=== PATIENT | female | born 1970 | race Caucasian/White ===

== ENCOUNTER 2021-08-12 13:06 | Outpatient (RCR) | payer MEDICARE | END 2021-08-16 | LOC: M PT 13:06 | PROVIDERS: ATTEND Family Medicine | DX: L03.116 Cellulitis of left lower limb (principal) ==

== ENCOUNTER 2021-09-12 14:43 | Outpatient (RCR) | payer MEDICARE | END 2021-09-15 | LOC: M PT 14:43 | PROVIDERS: ATTEND Family Medicine | DX: L03.116 Cellulitis of left lower limb (principal) ==

== ENCOUNTER 2021-10-07 13:27 | Outpatient (RCR) | payer MEDICARE | END 2021-10-16 | LOC: M PT 13:27 | PROVIDERS: ATTEND Family Medicine | DX: L03.116 Cellulitis of left lower limb (principal) ==

== ENCOUNTER 2021-11-04 11:46 | Outpatient (RCR) | payer MEDICARE | END 2021-11-16 | LOC: M PT 11:46 | PROVIDERS: ATTEND Family Medicine | DX: L03.116 Cellulitis of left lower limb (principal) ==

== ENCOUNTER 2022-01-03 14:02 | Outpatient (RCR) | payer MEDICARE | END 2022-01-16 | LOC: M PT 14:02 | PROVIDERS: ATTEND Family Medicine | DX: L03.116 Cellulitis of left lower limb (principal) ==

== ENCOUNTER 2022-07-14 13:38 | Outpatient (RCR) | payer MEDICARE, MEDICAID | END 2022-07-16 | LOC: M PT 13:38 | PROVIDERS: ATTEND Nurse Practitioner Family | DX: I89.0 Lymphedema, not elsewhere classified (principal) ==

== ENCOUNTER → 2022-08-16 | Outpatient (RCR) | payer MEDICARE, MEDICAID | LOC: M PT 07-19 14:50 | PROVIDERS: ATTEND Nurse Practitioner Family | DX: I89.0 Lymphedema, not elsewhere classified (principal) ==

== ENCOUNTER 2022-08-20 22:37 | Emergency (ER) | payer MEDICARE, MEDICAID ==
[~2022-08-20] VITALS: Ht 157.5 cm; Wt 113.6 kg
[2022-08-20 22:57] VITALS: BP 141/71
== END 2022-08-21 04:28 | disposition home or self-care (01) ==
LOC: EDBD 22:37 → M ED 22:37
DX: S40.012A Contusion of left shoulder, initial encounter (principal); S70.02XA Contusion of left hip, initial encounter; W01.0XXA Fall on same level from slipping, tripping and stumbling without subsequent striking against object, initial encounter; Y92.009 Unspecified place in unspecified non-institutional (private) residence as the place of occurrence of the external cause

== ENCOUNTER 2022-08-31 14:13 | Outpatient (RCR) | payer MEDICARE, MEDICAID | END 2022-09-15 | LOC: M PT 14:13 | PROVIDERS: ATTEND Nurse Practitioner Family | DX: I89.0 Lymphedema, not elsewhere classified (principal) ==

== ENCOUNTER → 2023-03-06 | Outpatient (REF) | payer MEDICARE, MEDICAID ==
[2023-03-06 18:03] LABS: APPEARANCE, URINE CLEAR (CLEAR); BACTERIA, URINE AUTO NEGATIVE (NEGATIVE); BILIRUBIN, URINE AUTO NEGATIVE (NEGATIVE); BLOOD, URINE BLOOD NEGATIVE (NEGATIVE); COLOR, URINE YELLOW (YELLOW); GLUCOSE, URINE (UA) AUTO 3+ mg/dL (NEGATIVE); KETONE, URINE AUTO NEGATIVE (NEGATIVE); LEUKOCYTE ESTERASE, URINE AUTO 1+ (NEGATIVE); NITRITE, URINE AUTO NEGATIVE (NEGATIVE); PROTEIN, URINE AUTO NEGATIVE (NEGATIVE); RBC, URINE AUTO 1 /HPF (0-3); SPECIFIC GRAVITY URINE AUTO 1.016 (1.002-1.035); SQUAMOUS EPITHELIAL CELL UR AU 7 /HPF (0-6); UROBILINOGEN, URINE AUTO 0.2 mg/dL (0.0-2.0); WBC, URINE AUTO 5 /HPF (0-3)
== END ==
LOC: M SMT 17:20
PROVIDERS: ATTEND Physician Assistant
DX: R31.21 Asymptomatic microscopic hematuria (principal)
CPT/HCPCS: 51798; 81001; 87086; 88108; G0463

== ENCOUNTER 2023-03-08 14:07 | Outpatient (RCR) | payer MEDICARE, MEDICAID | END 2023-03-18 | LOC: M PT 14:07 | PROVIDERS: ATTEND Nurse Practitioner Family | DX: I89.0 Lymphedema, not elsewhere classified (principal) ==

== ENCOUNTER 2023-04-16 13:30 | Outpatient (RCR) | payer MEDICARE, MEDICAID | END 2023-04-18 | LOC: M PT 13:30 | PROVIDERS: ATTEND Nurse Practitioner Family | DX: I89.0 Lymphedema, not elsewhere classified (principal) ==

== ENCOUNTER 2023-05-10 12:50 | Outpatient (RCR) | payer MEDICARE, MEDICAID | END 2023-05-17 | LOC: M PT 12:50 | PROVIDERS: ATTEND Family Medicine | DX: I89.0 Lymphedema, not elsewhere classified (principal) ==

== ENCOUNTER 2023-06-13 13:59 | Outpatient (RCR) | payer MEDICARE, MEDICAID | END 2023-06-17 | LOC: M PT 13:59 | PROVIDERS: ATTEND Family Medicine | DX: I89.0 Lymphedema, not elsewhere classified (principal) ==

== ENCOUNTER → 2023-07-17 | Outpatient (RCR) | payer MEDICARE, MEDICAID | LOC: M PT 06-21 13:33 | PROVIDERS: ATTEND Family Medicine | DX: I89.0 Lymphedema, not elsewhere classified (principal) ==

== ENCOUNTER 2023-08-14 13:20 | Outpatient (RCR) | payer MEDICARE, MEDICAID | END 2023-08-17 | LOC: M PT 13:20 | PROVIDERS: ATTEND Family Medicine | DX: I89.0 Lymphedema, not elsewhere classified (principal) ==

== ENCOUNTER 2023-10-16 13:05 | Outpatient (RCR) | payer MEDICARE, MEDICAID | END 2023-10-17 | LOC: M PT 13:05 | PROVIDERS: ATTEND Family Medicine | DX: I89.0 Lymphedema, not elsewhere classified (principal) ==

== ENCOUNTER 2023-11-14 12:35 | Outpatient (RCR) | payer MEDICARE, MEDICAID ==
[2023-11-17] MEDS ORDERED: CLIN-250 (18:18)
[2023-11-17] MEDS ORDERED: PERI12LIQ (18:18)
[2023-11-17] MEDS ORDERED: NYST-38 SSP (19:45)
== END 2023-11-17 ==
LOC: M PT 12:35
PROVIDERS: ATTEND Family Medicine
DX: I89.0 Lymphedema, not elsewhere classified (principal)

== ENCOUNTER 2023-11-17 18:10 | Emergency (ER) | payer MEDICARE, MEDICAID ==
[~2023-11-17] VITALS: Ht 157.5 cm; Wt 108.3 kg
[2023-11-17 18:11] VITALS: BP 135/63; TEMP 97.8; O2SAT 94
[2023-11-17] MEDS ORDERED: PERI12LIQ (18:18)
[2023-11-17] MEDS ORDERED: CLIN-250 (18:18)
[2023-11-17] MEDS ORDERED: NYST-38 SSP (19:45)
== END 2023-11-17 20:07 | disposition home or self-care (01) ==
LOC: M ED 18:10
DX: K12.1 Other forms of stomatitis (principal); E11.9 Type 2 diabetes mellitus without complications; I10 Essential (primary) hypertension; E78.5 Hyperlipidemia, unspecified; Z88.0 Allergy status to penicillin; Z91.030 Bee allergy status; Z79.899 Other long term (current) drug therapy

== ENCOUNTER 2023-12-10 08:30 | Outpatient (RCR) | payer MEDICARE, MEDICAID ==
[~2023-12-10 08:30] MED LIST: CLIN-250; NYST-38 SSP; PERI12LIQ
== END 2023-12-17 ==
LOC: M PT 08:30
PROVIDERS: ATTEND Family Medicine
DX: I89.0 Lymphedema, not elsewhere classified (principal)

== ENCOUNTER 2024-03-10 13:37 | Outpatient (RCR) | payer MEDICARE, MEDICAID | END 2024-03-18 | LOC: M PT 13:37 | PROVIDERS: ATTEND Family Medicine | DX: I89.0 Lymphedema, not elsewhere classified (principal) ==

== ENCOUNTER → 2024-05-29 | Outpatient (REF) | payer MEDICARE, MEDICAID ==
[2024-05-29 18:02] LABS: APPEARANCE, URINE HAZY (CLEAR); BACTERIA, URINE AUTO 1+ (NEGATIVE); BILIRUBIN, URINE AUTO NEGATIVE (NEGATIVE); BLOOD, URINE BLOOD 1+ (NEGATIVE); COLOR, URINE YELLOW (YELLOW); GLUCOSE, URINE (UA) AUTO 1+ mg/dL (NEGATIVE); KETONE, URINE AUTO NEGATIVE (NEGATIVE); LEUKOCYTE ESTERASE, URINE AUTO 3+ (NEGATIVE); NITRITE, URINE AUTO NEGATIVE (NEGATIVE); PROTEIN, URINE AUTO NEGATIVE (NEGATIVE); RBC, URINE AUTO 3 /HPF (0-3); SPECIFIC GRAVITY URINE AUTO 1.013 (1.002-1.035); SQUAMOUS EPITHELIAL CELL UR AU 3 /HPF (0-6); TRANSITIONAL EPITHELIAL AUTO <1 /HPF; UROBILINOGEN, URINE AUTO 0.2 mg/dL (0.0-2.0); WBC, URINE AUTO 42 /HPF (0-3)
== END ==
LOC: M SMT 17:00
PROVIDERS: ATTEND Physician Assistant
DX: R31.21 Asymptomatic microscopic hematuria (principal)

== ENCOUNTER 2024-06-09 13:35 | Outpatient (RCR) | payer MEDICARE, MEDICAID | END 2024-06-16 | LOC: M PT 13:35 | PROVIDERS: ATTEND Family Medicine | DX: I89.0 Lymphedema, not elsewhere classified (principal) ==

== ENCOUNTER 2024-09-29 13:23 | Outpatient (RCR) | payer MEDICARE, MEDICAID | END 2024-10-16 | LOC: M PT 13:23 | PROVIDERS: ATTEND Family Medicine | DX: I89.0 Lymphedema, not elsewhere classified (principal) ==

== ENCOUNTER 2024-12-31 13:49 | Outpatient (RCR) | payer MEDICARE, MEDICAID | END 2025-01-16 | LOC: M PT 13:49 | PROVIDERS: ATTEND Family Medicine | DX: I89.0 Lymphedema, not elsewhere classified (principal) ==